=== PATIENT | female | born 1990 | race Caucasian/White ===

== ENCOUNTER 2021-04-12 03:52 | Emergency (ER) | payer OTHER ==
[~2021-04-12] VITALS: Ht 154.9 cm; Wt 54.0 kg
[~2021-04-12 03:52] MED LIST: AMOX250 PO; CEPH500 PO; CODACE30 PO; HYDACE5 PO; MINO50 PO; PROACE100 PO; RXAMOX500 PO; RXCODACET PO
[2021-04-12] MEDS ORDERED: Bactrim Ds Tab1 EACH PO (05:06)
[2021-04-12] MEDS ORDERED: PHENA200 PO (05:06)
[2021-04-12 05:58] LABS: Appearance, Urine Hazy (Clear); Blood, Urine 4+ (Neg); Glucose Qualitative, Urine Neg (Neg); Ketones, Urine Neg (Neg); Leukocyte Esterase, Urine 3+ (Neg); Nitrite, Urine Pos (Neg); Protein, Urine 2+ (Neg); Specific Gravity, Urine 1.015 (1.003-1.022); Urobilinogen, Urine 1+ (Normal)
[2021-04-12 06:33] LABS: Bilirubin, Urine 1+ (Neg); Color, Urine Orange (P-Yellow)
[2021-04-12 06:34] LABS: White Blood Cells, Urine TNTC /hpf (0-5)
[2021-04-12 06:35] LABS: Bacteria Many /hpf; Squamous Epithelial Cells Few /hpf (Few)
[2021-04-15] MEDS ORDERED: NITR100CA PO (05:25)
== END 2021-04-12 05:38 | disposition home or self-care (01) ==
LOC: ER 03:52
PROVIDERS: Emergency Medicine
DX: N39.0 Urinary tract infection, site not specified (principal); F17.290 Nicotine dependence, other tobacco product, uncomplicated
CPT/HCPCS: 81001; 81025; 87077; 87086; 87186; A9270